=== PATIENT | female | born 1990 | race Caucasian/White ===

== ENCOUNTER 2017-09-10 07:42 | Emergency (ER) | payer MEDICAID, OTHER ==
[2017-09-10 08:07] VITALS: BP 115/67
--- NOTE | 2017-09-10 08:26 | UC ---
Abdominal Pain Female HPI - HPI Summary HPI Summary: Chief complaint is diarrhea but she also mentions cramping, myalgias and fever. This has persisted for three days. There is nausea without vomiting. No prior abd surgery. - History of Current Complaint Chief Complaint: UCGI Stated Complaint: DIARHEA Time Seen by Provider: 09/10/17 07:57 Hx Obtained From: Patient Hx Last Menstrual Period: 09/03/17 Onset/Duration: Gradual Onset, Lasting Days Timing: Constant Severity Initially: Moderate Severity Currently: Moderate Pain Intensity: 5 Location: Diffuse Character: Aching, Cramping, Dull Aggravating Factor(s): Food Alleviating Factor(s): Nothing Associated Signs and Symptoms: Positive: Fever, Nausea, Diarrhea. Negative: Blood in Stool, Urinary Symptoms, Decreased Appetite, Vomiting Allergies/Adverse Reactions: Allergies Allergy/AdvReac Type Severity Reaction Status Date / Time Penicillins Allergy Hives Verified 09/10/17 08:04 Home Medications: Home Medications Citalopram TAB* [CeleXA TAB*] 20 mg PO DAILY 09/10/17 [History Confirmed ] busPIRone TAB* [Buspar TAB*] 5 mg PO TID 09/10/17 [History Confirmed 09/10/17] PMH/Surg Hx/FS Hx/Imm Hx Previously Healthy: No - anxiety. - Surgical History Surgical History: Yes Surgery Procedure, Year, and Place: meniscus repair rt knee. carpal tunnel - Family History Known Family History: Positive: Other - no diarrhea related family history. - Social History Occupation: Employed Part-time Alcohol Use: Occasionally Substance Use Type: None Smoking Status (MU): Heavy Every Day Tobacco Smoker Type: Cigarettes Amount Used/How Often: 1/2ppd Have You Smoked in the Last Year: No - Immunization History Most Recent Influenza Vaccination: never Most Recent Tetanus Shot: 05/01/15 Most Recent Pneumonia Vaccination: n/a Review of Systems Constitutional: Fever Gastrointestinal: Diarrhea, Nausea All Other Systems Reviewed And Are Negative: Yes Physical Exam Triage Information Reviewed: Yes Appearance: Well-Appearing, No Pain Distress, Well-Nourished - Non toxic. She has body aches. Vital Signs: Initial Vital Signs Temp 98.2 F 09/10/17 08:02 Pulse 100 09/10/17 08:02 Resp 16 09/10/17 08:02 BP 115/67 09/10/17 08:02 Pulse Ox 100 09/10/17 08:02 Vital Signs Reviewed: Yes Eyes: Positive: Conjunctiva Clear. Negative: Conjunctiva Inflamed ENT: Positive: Normal ENT inspection, Hearing grossly normal, Pharynx normal, Uvula midline. Negative: Nasal congestion, Nasal drainage, Tonsillar swelling, Tonsillar exudate, Trismus Neck: Positive: Supple, Nontender, No Lymphadenopathy. Negative: Nuchal Rigidity Respiratory: Positive: Lungs clear, Normal breath sounds, No respiratory distress, No accessory muscle use. Negative: Respiratory distress, Decreased breath sounds, Accessory muscle use, Crackles, Rhonchi, Stridor Cardiovascular: Positive: No Murmur, Pulses Normal, Brisk Capillary Refill Abdominal Exam: Other - Diffuse tenderness without rebound, guarding or peritoneal signs. Neg psoas and rovsig. There is particular tenderness RLQ and RUQ without guzman's. Abdomen Description: Positive: No Organomegaly, Soft. Negative: CVA Tenderness (R), CVA Tenderness (L), Distended, Guarding Musculoskeletal: Positive: Strength Intact, ROM Intact, No Edema Neurological: Positive: Alert, Muscle Tone Normal. Negative: Fatigued Psychological: Positive: Age Appropriate Behavior Skin: Negative: rashes Abd Pain Female Course/Dx - Course Course Of Treatment: diarrhea without loss of appetite. She has tenderness but this is on exam. Per history, she focuses on diarrhea and myalgias. When asked her abd symptoms are cramping diffusely. I do not believe this is c/w acute abdomen or appendicitis but still told patient appendicitis is a remote possibility and that if pain gets worse and more focal, she is to get labs and CT abd immediately. In the meantime, supportive care described in detail including pedialyte, gatorade, tyelnol, simple foods. - Differential Dx/Diagnosis Provider Diagnoses: diarrhea. abd cramping. Discharge - Sign-Out/Discharge Documenting (check all that apply): Discharge/Admit/Transfer - Discharge Plan Condition: Good Disposition: HOME Prescriptions: Diphenoxylat/Atrop 2.5-0.025M* [Lomotil TAB*] 1 tab PO QID PRN #16 tab MDD 4 PRN Reason: Diarrhea Patient Education Materials: Acute Diarrhea (ED) Forms: *Work Release Referrals: Flavia Young NP [Primary Care Provider] - - Billing Disposition and Condition Condition: GOOD Disposition: HOME
== END 2017-09-10 08:28 | disposition home or self-care (01) ==
LOC: UCCORT 07:42
DX: R19.7 Diarrhea, unspecified (principal); R10.84 Generalized abdominal pain; Z88.0 Allergy status to penicillin; F17.210 Nicotine dependence, cigarettes, uncomplicated
CPT/HCPCS: 99212; G0463

== ENCOUNTER 2018-01-01 07:49 | Emergency (ER) | payer OTHER ==
[2018-01-01 08:13] VITALS: BP 122/72
--- NOTE | 2018-01-01 09:08 | UC ---
Respiratory Complaint HPI - HPI Summary HPI Summary: 27 year old female smoker with respiratory complaint. COUGH FOR ONE WEEK , SINUS CONGESTION. FEVER AT HOME LAST NIGHT. BODY ACHES. [ End ] - History of Current Complaint Chief Complaint: UCRespiratory Stated Complaint: COUGH/CONGESTION Time Seen by Provider: 01/01/18 08:58 Hx Obtained From: Patient Hx Last Menstrual Period: 12/08/17 Onset/Duration: Gradual Onset Timing: Constant Severity Initially: Mild Severity Currently: Mild Pain Intensity: 4 Character: Cough: Productive Associated Signs And Symptoms: Positive: URI, Nasal Congestion, Sinus Discomfort - Allergies/Home Medications Allergies/Adverse Reactions: Allergies Allergy/AdvReac Type Severity Reaction Status Date / Time Penicillins Allergy Hives Verified 01/01/18 08:07 PMH/Surg Hx/FS Hx/Imm Hx Previously Healthy: Yes - Surgical History Surgical History: Yes Surgery Procedure, Year, and Place: meniscus repair rt knee. carpal tunnel - Family History Known Family History: Positive: None - Social History Occupation: Unemployed Lives: With Family Alcohol Use: None Substance Use Type: None Smoking Status (MU): Heavy Every Day Tobacco Smoker Type: Cigarettes Amount Used/How Often: 1/2ppd Have You Smoked in the Last Year: No Household Exposure Type: Cigarettes - Immunization History Most Recent Influenza Vaccination: never Most Recent Tetanus Shot: 05/01/15 Most Recent Pneumonia Vaccination: n/a Review of Systems Constitutional: Fever, Chills, Fatigue ENT: Sore Throat, Ear Ache, Nasal Discharge, Sinus Congestion, Sinus Pain/ Tenderness Respiratory: Cough Is Patient Immunocompromised?: No All Other Systems Reviewed And Are Negative: Yes Physical Exam Triage Information Reviewed: Yes Appearance: Well-Appearing, No Pain Distress Vital Signs: Initial Vital Signs Temp 98.6 F 01/01/18 08:08 Pulse 103 01/01/18 08:08 Resp 14 01/01/18 08:08 BP 122/72 01/01/18 08:08 Pulse Ox 98 01/01/18 08:08 Vital Signs Reviewed: Yes Eye Exam: Normal ENT Exam: Normal Dental Exam: Normal Neck exam: Normal Neck: Positive: 1 Respiratory Exam: Normal Cardiovascular Exam: Normal Musculoskeletal Exam: Normal Neurological Exam: Normal Psychological Exam: Normal Skin Exam: Normal UC Diagnostic Evaluation - Laboratory O2 Sat by Pulse Oximetry: 98 Respiratory Course/Dx - Differential Dx/Diagnosis Differential Diagnosis/HQI/PQRI: Bronchitis, Lower Resp Infection, Sinusitis Discharge - Discharge Plan Referrals: Flavia Young [facility] [Primary Care Provider] -
== END 2018-01-01 09:46 | disposition home or self-care (01) ==
LOC: UCCORT 07:49
DX: R09.81 Nasal congestion (principal); F17.210 Nicotine dependence, cigarettes, uncomplicated; Z88.0 Allergy status to penicillin
CPT/HCPCS: 99212; G0463

== ENCOUNTER 2019-04-18 15:09 | Emergency (ER) | payer SELFPAY ==
[2019-04-18 15:47] VITALS: BP 121/67
--- NOTE | 2019-04-18 15:52 | UC ---
Complaint Female HPI - HPI Summary HPI Summary: 28-year-old female who has had burning on urination and frequency since last evening. She denies any abnormal vaginal discharge. She denies any fever or chills or back pain. - History Of Current Complaint Chief Complaint: UCGU Stated Complaint: URINARY Time Seen by Provider: 04/18/19 15:49 Hx Obtained From: Patient Hx Last Menstrual Period: February ?: No Onset/Duration: Gradual Onset Timing: Intermittent Severity Initially: Mild Severity Currently: Mild Pain Intensity: 4 Character: Burning Aggravating Factor(s): Urination Alleviating Factor(s): Nothing Associated Signs And Symptoms: Positive: Negative. Negative: Vaginal Bleeding/ Discharge, Vaginal Discharge - Allergies/Home Medications Allergies/Adverse Reactions: Allergies Allergy/AdvReac Type Severity Reaction Status Date / Time Penicillins Allergy Hives Verified 04/18/19 15:48 PMH/Surg Hx/FS Hx/Imm Hx Previously Healthy: Yes - Surgical History Surgical History: Yes Surgery Procedure, Year, and Place: meniscus repair rt knee. carpal tunnel - Family History Known Family History: Positive: None, Non-Contributory - Social History Alcohol Use: Rare Substance Use Type: None Smoking Status (MU): Heavy Every Day Tobacco Smoker Type: Cigarettes Amount Used/How Often: 1/2ppd Have You Smoked in the Last Year: No Household Exposure Type: Cigarettes - Immunization History Most Recent Influenza Vaccination: never Most Recent Tetanus Shot: 05/01/15 Most Recent Pneumonia Vaccination: n/a Review of Systems All Other Systems Reviewed And Are Negative: Yes Genitourinary: Positive: Dysuria, Frequency, Urgency Is Patient Immunocompromised?: No Physical Exam Triage Information Reviewed: Yes Appearance: Well-Appearing, No Pain Distress, Well-Nourished Vital Signs: Initial Vital Signs Temp 98.8 F 04/18/19 15:44 Pulse 76 04/18/19 15:44 Resp 16 04/18/19 15:44 BP 121/67 04/18/19 15:44 Pulse Ox 100 04/18/19 15:44 Vital Signs Reviewed: Yes Eyes: Positive: Conjunctiva Clear Respiratory: Positive: Lungs clear, Normal breath sounds, No respiratory distress, No accessory muscle use Cardiovascular: Positive: RRR, No Murmur, Pulses Normal, Brisk Capillary Refill Abdomen Description: Positive: Nontender, No Organomegaly, Soft. Negative: CVA Tenderness (R), CVA Tenderness (L), Distended, Guarding, Hepatomegaly, McBurney' s Point Tenderness, Splenomegaly Bowel Sounds: Positive: Present Musculoskeletal Exam: Normal Neurological Exam: Normal Psychological Exam: Normal Skin Exam: Normal Complaint Female Dx - Course Course Of Treatment: Patient is comfortable here and nontoxic. Urinalysis was positive for leukocytes. Urine hCG was negative. - Differential Dx/Diagnosis Provider Diagnosis: UTI (urinary tract infection) Discharge ED - Sign-Out/Discharge Documenting (check all that apply): Patient Departure All imaging exams completed and their final reports reviewed: No Studies - Discharge Plan Condition: Good Disposition: HOME Prescriptions: Sulfamethox/Trimethoprim DS* [Bactrim DS 800/160 TAB*] 1 tab PO BID 5 Days #10 tab Patient Education Materials: Urinary Tract Infection in Women (DC) Referrals: Flavia Young NP [Primary Care Provider] - Additional Instructions: Increase fluids, take the Bactrim with food. Definite follow-up with your primary care provider if no improvement in 3 or 4 days. Go to the emergency room if you develop any back pain, fever, chills or vomiting and unable keep the medicine down. - Billing Disposition and Condition Condition: GOOD Disposition: Home
== END 2019-04-18 16:01 | disposition home or self-care (01) ==
LOC: UCCORT 15:09
DX: N39.0 Urinary tract infection, site not specified (principal); F17.210 Nicotine dependence, cigarettes, uncomplicated; Z88.0 Allergy status to penicillin
CPT/HCPCS: 81003; 84702; 87077; 87086; 87186; 99212; G0463

== ENCOUNTER 2019-04-29 08:49 | Emergency (ER) | payer SELFPAY ==
[2019-04-29 09:07] VITALS: BP 113/82
--- NOTE | 2019-04-29 09:47 | UC ---
General HPI - HPI Summary HPI Summary: Patient was on Bactrim for 5 days - completed the course on 04/24. Friday she noticed that she broke out into hives went into the ER on 04/27 - was given prednisone and benadryl. She came home last night - this morning she woke up worse, her eyes are itching and redness all around her eyes, and more diffuse rash on torso arms and palms. Lips feel sore/tender. Last took benadryl last night. No throat swelling. No cough. No N/V. No abdominal cramping. Able to eat and drink without any issue. - History of Current Complaint Chief Complaint: UCAllergicReaction Stated Complaint: ALLERIGIC REACTION Time Seen by Provider: 04/29/19 09:30 Hx Last Menstrual Period: 04/28/19 Pain Intensity: 0 - Allergy/Home Medications Allergies/Adverse Reactions: Allergies Allergy/AdvReac Type Severity Reaction Status Date / Time sulfamethoxazole Allergy Unknown hives, Verified 04/29/19 09:48 [From Bactrim] itching , swelling trimethoprim [From Bactrim] Allergy Unknown hives, Verified 04/29/19 09:48 itching , swelling Penicillins Allergy Hives Verified 04/29/19 08:59 Home Medications: Home Medications diphenhydrAMINE HCl [Benadryl LIQUID 12.5 MG/5 ML] 12.5 mg PO ONCE PRN 04/29/19 [History Confirmed 04/29/19] PMH/Surg Hx/FS Hx/Imm Hx Previously Healthy: Yes - Surgical History Surgical History: Yes Surgery Procedure, Year, and Place: meniscus repair rt knee. carpal tunnel - Family History Known Family History: Positive: None, Non-Contributory - Social History Alcohol Use: Rare Substance Use Type: None Smoking Status (MU): Heavy Every Day Tobacco Smoker Type: Cigarettes Amount Used/How Often: 1/2ppd Have You Smoked in the Last Year: No Household Exposure Type: Cigarettes - Immunization History Most Recent Influenza Vaccination: never Most Recent Tetanus Shot: 05/01/15 Most Recent Pneumonia Vaccination: n/a Review of Systems All Other Systems Reviewed And Are Negative: Yes Skin: Positive: Rash Physical Exam Triage Information Reviewed: Yes Appearance: Well-Appearing Vital Signs: Initial Vital Signs Temp 97.6 F 04/29/19 09:00 Pulse 87 04/29/19 09:00 Resp 15 04/29/19 09:00 BP 113/82 04/29/19 09:00 Pulse Ox 100 04/29/19 09:00 Vital Signs Reviewed: Yes Eyes: Positive: Conjunctiva Clear ENT: Positive: Pharyngeal erythema Neck: Positive: Supple, Nontender Respiratory: Positive: Lungs clear, Normal breath sounds Cardiovascular: Positive: RRR, No Murmur Skin: Positive: Other - diffuse urticarial lesions, no sloughing or skin peeling , no dark discoloration. Erythema around the eyes. Course/Dx - Course Course Of Treatment: This is a 28 yr old with reaction to Bactrim Could be early SJS with eye and lip involvement but has not progressed as the day has gone on. Discussed close monitoring - any change at all she needs to go immediately to the ER. She lives with her boyfriend who will stay with her. Plan Start Prednisone as prescribed Continue Benadryl as needed for symptoms - rash/itching Start Zyrtec daily Epi pen as needed If symptoms persist or worsen, go to the ER for further work up If you have worsening mouth or eye involvement - go back to the ER You are considered allergic to Bactrim - do not take this in the future - Diagnoses Provider Diagnosis: Allergic reaction Discharge ED - Sign-Out/Discharge Documenting (check all that apply): Patient Departure All imaging exams completed and their final reports reviewed: No Studies - Discharge Plan Condition: Fair Disposition: HOME Prescriptions: EPINEPHrine [Epipen] 0.3 mg IJ ONCE PRN #1 auto.injct PRN Reason: Allergy Symptoms predniSONE 50 mg TAB [Deltasone 50 mg TAB] 50 mg PO DAILY #3 tab Patient Education Materials: General Allergic Reaction (ED) Forms: *Work Release Referrals: Flavia Young NP [Primary Care Provider] - Additional Instructions: Start Prednisone as prescribed Continue Benadryl as needed for symptoms - rash/itching Start Zyrtec daily If symptoms persist or worsen, go to the ER for further work up If you have worsening mouth or eye involvement - go back to the ER You are considered allergic to Bactrim - do not take this in the future - Billing Disposition and Condition Condition: FAIR Disposition: Home
== END 2019-04-29 09:57 | disposition home or self-care (01) ==
LOC: UCCORT 08:49
DX: L27.0 Generalized skin eruption due to drugs and medicaments taken internally (principal); T36.8X5A Adverse effect of other systemic antibiotics, initial encounter; F17.210 Nicotine dependence, cigarettes, uncomplicated; Z88.0 Allergy status to penicillin; Y92.9 Unspecified place or not applicable
CPT/HCPCS: 99212; G0463

== ENCOUNTER 2019-05-26 10:48 | Emergency (ER) | payer MEDICAID ==
[2019-05-26 13:09] VITALS: BP 124/76
--- NOTE | 2019-05-26 13:27 | UC ---
Throat Pain/Nasal Ryan HPI - HPI Summary HPI Summary: 38-year-old woman comes in with a chief complaint of sore throat. Patient's had upper respiratory tract infection symptoms for about a week. She is green rhinorrhea and sinus pressure. Yesterday she started with a sore throat. Hurts worse to swallow. She's tried ibuprofen and throat lozenges is not helping. No complaint of any chest congestion. - History of Current Complaint Chief Complaint: UCRespiratory Stated Complaint: SORE THROAT Time Seen by Provider: 05/26/19 12:54 Hx Last Menstrual Period: 04/15/18 Pain Intensity: 5 - Allergies/Home Medications Allergies/Adverse Reactions: Allergies Allergy/AdvReac Type Severity Reaction Status Date / Time sulfamethoxazole Allergy Unknown hives, Verified 05/26/19 13:08 [From Bactrim] itching , swelling trimethoprim [From Bactrim] Allergy Unknown hives, Verified 05/26/19 13:08 itching , swelling Penicillins Allergy Hives Verified 05/26/19 13:08 Home Medications: Home Medications Ibuprofen 600 mg PO ONCE 05/26/19 [History Confirmed 05/26/19] PMH/Surg Hx/FS Hx/Imm Hx Previously Healthy: Yes - Surgical History Surgical History: Yes Surgery Procedure, Year, and Place: meniscus repair rt knee. carpal tunnel - Family History Known Family History: Positive: None, Non-Contributory - Social History Alcohol Use: Rare Substance Use Type: None Smoking Status (MU): Heavy Every Day Tobacco Smoker Type: Cigarettes Amount Used/How Often: 1/2ppd Have You Smoked in the Last Year: No Household Exposure Type: Cigarettes - Immunization History Most Recent Influenza Vaccination: never Most Recent Tetanus Shot: 05/01/15 Most Recent Pneumonia Vaccination: n/a Review of Systems All Other Systems Reviewed And Are Negative: Yes Constitutional: Positive: Other - see hpi Skin: Positive: Negative Eyes: Positive: Negative ENT: Positive: Sore Throat, Nasal Discharge, Sinus Congestion Respiratory: Positive: Negative Cardiovascular: Positive: Negative Gastrointestinal: Positive: Negative Motor: Positive: Negative Neurovascular: Positive: Negative Musculoskeletal: Positive: Negative Neurological/Mental Status: Positive: Negative Psychological: Positive: Negative Is Patient Immunocompromised?: No Physical Exam Triage Information Reviewed: Yes Appearance: No Pain Distress, Well-Nourished, Ill-Appearing - mild Vital Signs: Initial Vital Signs Temp 97.9 F 05/26/19 13:04 Pulse 111 05/26/19 13:04 Resp 18 05/26/19 13:04 BP 124/76 05/26/19 13:04 Pulse Ox 100 05/26/19 13:04 Vital Signs Reviewed: Yes Eye Exam: Normal Eyes: Positive: Conjunctiva Clear ENT: Positive: Pharyngeal erythema, Nasal congestion, Nasal drainage, TMs normal Neck: Positive: Supple Respiratory: Positive: Lungs clear, Normal breath sounds, No respiratory distress Cardiovascular: Positive: RRR Musculoskeletal: Positive: Strength Intact, ROM Intact Neurological: Positive: Alert, Muscle Tone Normal Psychological: Positive: Age Appropriate Behavior Skin Exam: Normal Throat Pain/Nasal Course/Dx - Differential Dx/Diagnosis Provider Diagnosis: Sinusitis, Strep pharyngitis Discharge ED - Sign-Out/Discharge Documenting (check all that apply): Patient Departure All imaging exams completed and their final reports reviewed: No Studies - Discharge Plan Condition: Stable Disposition: HOME Prescriptions: Clindamycin Cap(NF) [Clindamycin Cap 300 mg Cap(NF)] 300 mg PO TID #30 cap Patient Education Materials: Sinusitis (ED), Strep Throat (ED) Referrals: [facility] [Outside] Additional Instructions: FOLLOW UP WITH YOUR DOCTOR IF NOT COMPLETELY IMPROVED. GET REEVALUATED SOONER IF NOT IMPROVED OR WORSE OR ANY QUESTIONS OR CONCERNS. - Billing Disposition and Condition Condition: STABLE Disposition: Home
== END 2019-05-26 13:32 | disposition home or self-care (01) ==
LOC: UCCORT 10:48
DX: J32.9 Chronic sinusitis, unspecified (principal); J02.0 Streptococcal pharyngitis; F17.210 Nicotine dependence, cigarettes, uncomplicated; Z88.2 Allergy status to sulfonamides; Z88.0 Allergy status to penicillin
CPT/HCPCS: 87651; 99212; G0463

== ENCOUNTER 2019-06-17 13:07 | Emergency (ER) | payer MEDICAID, OTHER ==
[2019-06-17 15:19] VITALS: BP 119/76
--- NOTE | 2019-06-17 15:38 | UC ---
Complaint Female HPI - HPI Summary HPI Summary: 28yo female presenting with dysuria since last night and urgency and frequency since this morning. Denies hematuria. Denies abdominal pain. Denies n/v. Denies flank pain. Denies fever and chills. Patient states this "feels like UTIs she has in the past." Does note possibility of . Denies concern for STIs. Denies taking anything for symptom relief. - History Of Current Complaint Chief Complaint: UCGU Stated Complaint: URINARY Hx Obtained From: Patient Hx Last Menstrual Period: 05/03/19 Pain Intensity: 0 - Allergies/Home Medications Allergies/Adverse Reactions: Allergies Allergy/AdvReac Type Severity Reaction Status Date / Time sulfamethoxazole Allergy Unknown hives, Verified 06/17/19 15:16 [From Bactrim] itching , swelling trimethoprim [From Bactrim] Allergy Unknown hives, Verified 06/17/19 15:16 itching , swelling Penicillins Allergy Hives Verified 06/17/19 15:16 Home Medications: Home Medications EPINEPHrine [Epipen] 0.3 mg IJ ONCE PRN #1 auto.injct 04/29/19 [Rx Confirmed 08/31] Ibuprofen 600 mg PO ONCE 05/26/19 [History Confirmed 06/17/19] Nitrofurantoin Monohyd/M-Cryst [Macrobid 100 mg Capsule] 100 mg PO BID #10 cap 06/17/19 [Rx] PMH/Surg Hx/FS Hx/Imm Hx Previously Healthy: Yes - Surgical History Surgical History: Yes Surgery Procedure, Year, and Place: meniscus repair rt knee. carpal tunnel - Family History Known Family History: Positive: None, Non-Contributory - Social History Alcohol Use: Occasionally Substance Use Type: None Smoking Status (MU): Heavy Every Day Tobacco Smoker Type: Cigarettes Amount Used/How Often: 1/2ppd Length of Time of Smoking/Using Tobacco: 10 Have You Smoked in the Last Year: No Household Exposure Type: Cigarettes - Immunization History Most Recent Influenza Vaccination: never Most Recent Tetanus Shot: 05/01/15 Most Recent Pneumonia Vaccination: n/a Review of Systems All Other Systems Reviewed And Are Negative: Yes Constitutional: Positive: Negative Respiratory: Positive: Negative Cardiovascular: Positive: Negative Gastrointestinal: Positive: Negative Genitourinary: Positive: Dysuria, Frequency, Urgency. Negative: Hematuria, Vaginal/Penile Discharge Musculoskeletal: Positive: Negative Neurological/Mental Status: Positive: Negative Physical Exam - Summary Physical Exam Summary: Vital Signs Reviewed: Yes A+Ox3, no distress Eyes: Conjunctiva Clear ENT: Hearing grossly normal neck: supple Respiratory: Positive: No respiratory distress, No accessory muscle use Cardiovascular: skin color reflect adequate perfusion Musculoskeletal Exam: BISHOP x 4 without difficulty Neurological: Positive: Alert, ambulatory without difficulty Psychological: Positive: age appropriate behavior Skin: Positive: no rash, no ecchymosis Vital Signs: Initial Vital Signs Temp 98.6 F 06/17/19 15:17 Pulse 103 06/17/19 15:17 Resp 18 06/17/19 15:17 BP 119/76 06/17/19 15:17 Pulse Ox 98 06/17/19 15:17 Lab Results 06/17/19 06/17/19 Range/Units 15:23 15:35 POC Urine Color Yellow POC Urine Clarity Clear POC Urine pH 8.0 (5-9) POC Ur Specif Ronald 1.020 (1.010-1.030) POC Urine Protein Negative (Negative) POC Ur Glucose (UA) Negative (Negative) POC Urine Ketones Negative (Negative) POC Urine Blood Negative (Negative) POC Urine Nitrite Negative (Negative) POC Urine Bilirubin Negative (Negative) POC Urine Urobilinogen 0.2 (Negative) POC U Leukocyte Esteras Negative (Negative) POC Ur Test Negative (Negative) Complaint Female Dx - Course Course Of Treatment: Negative UA. I treated patient with macrobid based on symptoms and sent urine for culture. Informed the patient that a urine culture has been sent and she will be notified with any results warranting change in treatment. Patient voiced understanding and agreed with treatment plan. - Differential Dx/Diagnosis Provider Diagnosis: UTI symptoms Discharge ED - Sign-Out/Discharge Documenting (check all that apply): Patient Departure All imaging exams completed and their final reports reviewed: No Studies - Discharge Plan Condition: Stable Disposition: HOME Prescriptions: Nitrofurantoin Monohyd/M-Cryst [Macrobid 100 mg Capsule] 100 mg PO BID #10 cap Patient Education Materials: Urinary Tract Infection in Women (ED) Referrals: [facility] [Outside] - If Needed Additional Instructions: Take Macrobid for treatment of possible UTI. A culture has been sent and you will be notified with any results that warrant change in treatment. You may also take over the counter Azo as needed for symptomatic relief. Increase your fluid intake. Follow up with your PCP or the [facility] if symptoms do not resolve. Return or go to emergency room with any new or worsening symptoms. - Billing Disposition and Condition Condition: STABLE Disposition: Home
== END 2019-06-17 15:59 | disposition home or self-care (01) ==
LOC: UCCORT 13:07
DX: R30.0 Dysuria (principal); R35.0 Frequency of micturition; R39.15 Urgency of urination; Z88.2 Allergy status to sulfonamides; Z88.1 Allergy status to other antibiotic agents; Z88.0 Allergy status to penicillin; F17.210 Nicotine dependence, cigarettes, uncomplicated
CPT/HCPCS: 81003; 84702; 87086; 99212; G0463

== ENCOUNTER 2019-07-08 15:02 | Emergency (ER) | payer OTHER ==
--- NOTE | 2019-07-08 15:35 | UC ---
General HPI - HPI Summary HPI Summary: Strep dx x 2 in the past month - two rounds of antibiotics in the past month. >2 weeks ago 05/25 - in ER - had a miscarriage had a cough at the same time. Had another round of strep - Finished zithromax. Slight cough on and off. Did seem to be getting better but then nasal congestion started over the past 2-3 days and cough got much worse this past week. +Congestion, +PND, No fever Seasonal allergies - No history of them. Not taking anything OTC Use inhaler occasionally not often - no improvement - about to . No spacer Smoking / ppd No SOB, chest hurts with coughing and headache Lives with two kids and boyfriend. Has been self quarantining for weeks. - History of Current Complaint Chief Complaint: UCGeneralIllness Stated Complaint: COUGH Hx Last Menstrual Period: 06/22/19 Pain Intensity: 0 - Allergy/Home Medications Allergies/Adverse Reactions: Allergies Allergy/AdvReac Type Severity Reaction Status Date / Time sulfamethoxazole Allergy Unknown hives, Verified 07/08/19 15:18 [From Bactrim] itching , swelling trimethoprim [From Bactrim] Allergy Unknown hives, Verified 07/08/19 15:18 itching , swelling Penicillins Allergy Hives Verified 07/08/19 15:18 Home Medications: Home Medications EPINEPHrine [Epipen] 0.3 mg IJ ONCE PRN #1 auto.injct 04/29/19 [Rx Confirmed ] Ibuprofen 600 mg PO ONCE 05/26/19 [History Confirmed 07/08/19] Albuterol HFA INHALER* [Ventolin HFA Inhaler*] 2 puff INH Q4H PRN #1 mdi [Rx] Benzonatate CAP* [Tessalon 100 MG CAP*] 100 mg PO TID PRN #30 cap 07/08/19 [Rx] Fluticasone NASAL SPRAY 50MCG* [Flonase NASAL SPRAY 50MCG*] 2 spray BOTH NARES DAILY #1 btl 07/08/19 [Rx] Spacer/Holding Chamber (NF) [Easivent CHAMBER (NF)] 1 applic INH Q4HR PRN #1 device 07/08/19 [Rx] predniSONE [Prednisone 20 MG TAB] 20 mg PO DAILY #11 tablet 07/08/19 [Rx] PMH/Surg Hx/FS Hx/Imm Hx Previously Healthy: Yes Respiratory History: Asthma - Surgical History Surgical History: Yes Surgery Procedure, Year, and Place: meniscus repair rt knee. carpal tunnel - Family History Known Family History: Positive: None, Non-Contributory - Social History Alcohol Use: Occasionally Substance Use Type: None Smoking Status (MU): Heavy Every Day Tobacco Smoker Type: Cigarettes Amount Used/How Often: 1/2ppd Length of Time of Smoking/Using Tobacco: 10 Have You Smoked in the Last Year: No Household Exposure Type: Cigarettes - Immunization History Most Recent Influenza Vaccination: never Most Recent Tetanus Shot: 05/01/15 Most Recent Pneumonia Vaccination: n/a Review of Systems All Other Systems Reviewed And Are Negative: Yes ENT: Positive: Nasal Discharge Respiratory: Positive: Cough Physical Exam Triage Information Reviewed: Yes Appearance: Well-Appearing Vital Signs Reviewed: Yes ENT: Positive: Pharyngeal erythema, Nasal congestion Neck: Positive: Supple, Nontender Respiratory: Positive: Decreased breath sounds, Other: - faint scattered b/l expiratory wheeze with coarse cough Cardiovascular: Positive: RRR, No Murmur Course/Dx - Course Course Of Treatment: This is a 28 yr old with PMhx of asthma who presents with cough and congestion Suspect asthma exacerbation secondary to viral illness No indication for antibiotics at this time. Just finished two rounds COVID tested Plan Use Albuterol inhaler 2 puffs with spacer ever 4 hours while sick, then to as needed Start Prednisone course as directed Flonase nasal spray as directed REcommend decongestant such as sudafed STOP SMOKING Rest, recommend plenty of fluids and tylenol as needed Continue to self quarantine until we contact you with the results in 2-4 days If you develop any shortness of breath or chest pain, recommend go to the ER - Diagnoses Provider Diagnosis: Asthma, Viral syndrome Discharge ED - Sign-Out/Discharge Documenting (check all that apply): Patient Departure All imaging exams completed and their final reports reviewed: No Studies - Discharge Plan Condition: Fair Disposition: HOME Prescriptions: Albuterol HFA INHALER* [Ventolin HFA Inhaler*] 2 puff INH Q4H PRN #1 mdi PRN Reason: Cough Benzonatate CAP* [Tessalon 100 MG CAP*] 100 mg PO TID PRN #30 cap PRN Reason: Cough Fluticasone NASAL SPRAY 50MCG* [Flonase NASAL SPRAY 50MCG*] 2 spray BOTH NARES DAILY #1 btl predniSONE [Prednisone 20 MG TAB] 20 mg PO DAILY #11 tablet Spacer/Holding Chamber (NF) [Easivent CHAMBER (NF)] 1 applic INH Q4HR PRN #1 device PRN Reason: Cough Patient Education Materials: Asthma (ED), Viral Syndrome (ED) Forms: COVID-19 Tested & Isolation Referrals: No Primary Care Phys,NOPCP [Primary Care Provider] - [facility] [place]] Additional Instructions: Use Albuterol inhaler 2 puffs with spacer ever 4 hours while sick, then to as needed Start Prednisone course as directed Flonase nasal spray as directed REcommend decongestant such as sudafed STOP SMOKING Rest, recommend plenty of fluids and tylenol as needed Continue to self quarantine until we contact you with the COVID 19 results in 2- 4 days If you develop any shortness of breath or chest pain, recommend go to the ER - Billing Disposition and Condition Condition: FAIR Disposition: Home
[2019-07-08 15:53] VITALS: BP 119/75
== END 2019-07-08 16:00 | disposition home or self-care (01) ==
LOC: UCCORT 15:02
DX: J45.909 Unspecified asthma, uncomplicated (principal); B34.9 Viral infection, unspecified; Z20.828 Contact with and (suspected) exposure to other viral communicable diseases; Z88.0 Allergy status to penicillin; Z88.2 Allergy status to sulfonamides; F17.210 Nicotine dependence, cigarettes, uncomplicated
CPT/HCPCS: 87635; 99212; G0463